=== PATIENT | male | born 1945 | race Caucasian/White ===

== ENCOUNTER 2023-10-18 15:33 | Emergency (ER) | payer OTHER ==
[~2023-10-18] VITALS: Ht 182.9 cm; Wt 86.2 kg
[~2023-10-18 15:33] MED LIST: KETOROLAC TROMETHAMINE 30 MG VIAL ONE; ONDANSETRON 4 MG ODT TAB ONE
[2023-10-18 15:52] VITALS: BP_SYST 169; PULSE 51; RESP 20; TEMP 97; O2SAT 96
[2023-10-18] MEDS: KETOROLAC TROMETHAMINE 30 MG VIAL IM ONE (16:16)
[2023-10-18] MEDS: ONDANSETRON 4 MG ODT TAB PO ONE (16:35)
[2023-10-18 17:36] VITALS: BP_SYST 138; PULSE 59; RESP 17; TEMP 97.9; O2SAT 98
== END 2023-10-18 17:37 | disposition home or self-care (01) ==
LOC: SED 15:33
DX: R51.9 Headache, unspecified (principal); H57.12 Ocular pain, left eye; I10 Essential (primary) hypertension; Z79.899 Other long term (current) drug therapy
CPT/HCPCS: 99285; 70450; 96372; 70480; Q0162; J1885